=== PATIENT | male | born 1975 | race Caucasian/White ===

== ENCOUNTER 2018-09-19 21:34 | Emergency (ER) | payer MEDICAID ==
[2018-09-19 21:41] VITALS: BP 152/100
--- NOTE | 2018-09-19 22:46 | ER Report ---
History and Physical Time Seen By MD: 22:35 Hx. 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 He did not have a specific incident that bothered him, however noted that he ultimately developed right sided shoulder discomfort throughout the day that has gotten worse. Patient has taken a couple Tylenol today and 2 ibuprofen earlier today without significant relief. He does not note any deformity or change in range of motion, and feels that he has maybe pulled a muscle. He has no difficulty breathing, chest pain, or previous problems with this shoulder. REVIEW OF SYSTEMS: Respiratory: No cough, no dyspnea. Cardiovascular: No chest pain, no palpitations. Gastrointestinal: No vomiting, no abdominal pain. Musculoskeletal: No back pain. Remainder of the 14 system rev: Yes Allergies: Coded Allergies: Penicillins (Verified Allergy, Unknown, 09/19/18) Home Meds No Active Prescriptions or Reported Meds Reviewed Nurses Notes: Yes Constitutional Vital Sign - Last 24 Hours 09/19/18 21:41 Temp 98.6 Pulse 100 Resp 18 B/P (MAP) 153/100 Pulse Ox 95 O2 Delivery Room Air Physical Exam General Appearance: The patient is alert, has no immediate need for airway protection and no current signs of toxicity. Eyes: Pupils equal and round no injection. Respiratory: Chest is non tender, lungs are clear to auscultation. Cardiac: regular rate and rhythm Musculoskeletal: Neck: Neck is supple and non tender. Extremities have full range of motion and are non tender with the exception of right shoulder. Patient has mild bony tenderness at distal acromion, though no before meals tenderness. He has no bony step-off. He has full range of motion in the right shoulder both passively and actively. He has slight discomfort on external rotation, though minimal discomfort on internal rotation. He has no palpable muscle belly defect of arm or shoulder. He has tenderness directly over the head of the biceps as well as the bicipital tendon. He also has tenderness over the anterior head of the deltoid. There is no contusion, ecchymosis, laceration, rash. Skin: No rashes or lesions. [ ] DIFFERENTIAL DIAGNOSIS: After history and physical exam differential diagnosis was considered for shoulder dislocation, AC sprain, muscle tear, rotator cuff or other injury. Medical Decision Making ED Course/Re-evaluation ED Course 42-year-old male presents with right shoulder pain. Pain is most consistent with bicipital tendon inflammation and possible mild rotator cuff strain, though he does not have clear or significant findings for other etiologies. There is no shoulder dislocation. I offered a sling and recommend continued rice treatment. Patient is comfortable with this plan. He understands strict return precautions. Decision to Disposition Date: Sep 19, 2018 Decision to Disposition Time: 22:52 Depart Departure Latest Vital Signs Vital Signs Date Time Temp Pulse Resp B/P (MAP) Pulse Ox O2 Delivery O2 Flow Rate FiO2 09/19/18 21:41 98.6 100 18 153/100 95 Room Air Impression: Primary Impression: Strain of shoulder, right Condition: Improved Disposition: HOME OR SELF-CARE New Scripts No Active Prescriptions or Reported Meds Patient Instructions: Shoulder Sprain (ED) Additional Instructions: As we discussed, use sling as needed for comfort. Ice 20 minutes at a time. Use ibuprofen 600mg every 8 hours as needed and tylenol 650mg every 6 hours as needed. Problem Qualifiers Primary Impression: Strain of shoulder, right Encounter type: initial encounter Qualified Codes: S46.911A - Strain of unspecified muscle, fascia and tendon at shoulder and upper arm level, right arm, initial encounter JEANETTE CHU MD Sep 19, 2018 22:46
[2018-09-19] MEDS ORDERED: KETOROLAC 60 MG/2 ML VIAL IM ONE (22:50)
== END 2018-09-19 22:57 | disposition home or self-care (01) ==
LOC: ER 21:45
DX: S46.911A Strain of unspecified muscle, fascia and tendon at shoulder and upper arm level, right arm, initial encounter (principal)
CPT/HCPCS: 96372; 99283; A4565; J1885